=== PATIENT | female | born 1995 | race Caucasian/White ===

== ENCOUNTER 2016-09-23 23:13 | Emergency (ER) | payer BC ==
[2016-09-23 23:20] VITALS: RESP 16; O2SAT 96
[2016-09-23] MEDS ORDERED: ONDANSETRON DISINTEGRATING 4 MG TAB PO ONE (23:20)
--- NOTE | 2016-09-24 01:15 | EDPHY ---
H & P Stated Complaint: EtOH - Personal History LMP (Females 10-55): Unknown Current Tetanus Diphtheria and Acellular Pertussis (TDAP): Yes - Medical/Surgical History Hx Asthma: No Hx Chronic Respiratory Disease: No Hx Diabetes: No Hx Cardiac Disease: No Hx Renal Disease: No Hx Cirrhosis: No Hx Alcoholism: No Hx HIV/AIDS: No Hx Splenectomy or Spleen Trauma: No Other PMH: R foot surgery, - Social History Smoking Status: Never smoked Time Seen by Provider: 09/23/16 23:40 HPI/ROS: Chief complaint: Alcohol intoxication History of present illness: This is a 21-year-old female brought in by EMS, accompanied by police after being found lying on the ground by a coffee shop intoxicated. According to EMS no concern for trauma. Patient does appear to be heavily intoxicated. On my evaluation she wakes to verbal stimuli but does not communicate with me. She is on in [facility] hold. Review of systems: Unable to obtain secondary to the level of intoxication ( Heri Carpenter) - Physical Exam Exam: General Appearance: Alert to verbal stimuli otherwise sleeping in bed Eyes: PERRLA ENT: No hemotympanum, no oswald sign, no raccoon eyes Respiratory: Lungs clear to auscultation bilaterally Cardiac: Regular rate and rhythm. Gastrointestinal: Soft, nondistended, no apparent tenderness. Neurological: Alert to verbal stimuli. Moving extremities well. Skin: A head-to-toe examination does not reveal lesions consistent with trauma Musculoskeletal: Head is normocephalic, atraumatic. Spine without apparent tenderness, no crepitus, bony deformity or step-off. Chest wall intact palpation without crepitus or subcutaneous air. Patient moving extremities. (Heri Carpenter) Constitutional: Initial Vital Signs Temperature (C) 36.8 C 09/23/16 23:18 Heart Rate 84 09/23/16 23:18 Respiratory Rate 16 09/23/16 23:18 Blood Pressure 124/87 H 09/23/16 23:18 O2 Sat (%) 96 09/23/16 23:18 O2 Delivery Mode Room Air Allergies/Adverse Reactions: acetaminophen Allergy (Verified 09/23/16 23:18) ibuprofen Allergy (Verified 09/23/16 23:18) Home Medications: Medication Instructions Recorded Bcp 03/22/16 Medical Decision Making Differential Diagnosis: Patient brought in on an [facility] hold after being found intoxicated. She does appear heavily intoxicated. No evidence of trauma on evaluation. She will need to sober up in the emergency room and be re-evaluated before she can be discharged. Care of patient turned over to my attending physician Dr. Bertin Arredondo at end of shift. (Heri Carpenter) 0115 care assumed by me pending sobriety. 0510 Patient is now awake and appropriate. Ambulating unassisted to the bathroom. No current complaints. Medically cleared for the [facility] (Bertin Livingston) - Data Points Medications Given: Discontinued Medications Ondansetron HCl (Zofran Odt) 4 mg PO EDNOW ONE Stop: 09/23/16 23:21 Last Admin: 09/23/16 23:21 Dose: 4 mg Departure - Departure Disposition: Home, Routine, Self-Care Clinical Impression: Alcoholic intoxication Qualifiers: Complication of substance-induced condition: uncomplicated Qualified Code(s): F10.120 - Alcohol abuse with intoxication, uncomplicated Condition: Good Instructions: Alcohol Intoxication (ED) Additional Instructions: Please avoid binge drinking alcohol. Referrals: Patient,NotPresent [Primary Care Provider] - As per Instructions
[2016-09-24 05:16] VITALS: BP 122/74; PULSE 66; TEMP 97.5
== END 2016-09-24 05:22 | disposition home or self-care (01) ==
LOC: EDUNIT# → EDBD
DX: F10.120 Alcohol abuse with intoxication, uncomplicated (principal)